=== PATIENT | female | born 1970 | race Caucasian/White ===

== ENCOUNTER 2017-07-19 01:48 | Emergency (ER) | payer SELFPAY ==
[~2017-07-19] VITALS: Ht 180.3 cm; Wt 137.3 kg
[2017-07-19] MEDS ORDERED: ibuprofen 200mg tablet PO ONE (03:10)
[2017-07-19] MEDS ORDERED: cephalexin 500mg capsule PO ONE (03:10)
[2017-07-19] MEDS ORDERED: CEPH500C5 PO (03:11)
[2017-07-19 03:19] VITALS: BP 149/94
== END 2017-07-19 03:19 | disposition home or self-care (01) ==
LOC: EDBD 01:48 → ER 01:48
DX: L03.116 Cellulitis of left lower limb (principal); G89.29 Other chronic pain; Z90.49 Acquired absence of other specified parts of digestive tract; Z79.899 Other long term (current) drug therapy
CPT/HCPCS: 99284